=== PATIENT | male | born 1975 | race Caucasian/White ===

== ENCOUNTER 2020-06-20 14:22 | Emergency (ER) | payer MEDICARE, OTHER ==
[2020-06-20 17:25] LABS: RED BLOOD COUNT 5.76 M/UL (4.20-5.50); WHITE BLOOD COUNT 11.6 K/UL (4.5-11.0)
[2020-06-20 17:41] LABS: BUN/CREATININE RATIO 21 (0-10)
== END 2020-06-20 22:26 | disposition home or self-care (01) ==
LOC: ER1 14:22
PROVIDERS: Physician Assistant Medical
DX: R51.9 Headache, unspecified (principal); E11.65 Type 2 diabetes mellitus with hyperglycemia; I48.91 Unspecified atrial fibrillation; F17.200 Nicotine dependence, unspecified, uncomplicated; Z79.01 Long term (current) use of anticoagulants; Z86.69 Personal history of other diseases of the nervous system and sense organs; Z86.718 Personal history of other venous thrombosis and embolism
CPT/HCPCS: 70450; 80053; 85025; 85610; 96372; 96374; 96375; 99284; J0780; J1200; J3030; J7030